=== PATIENT | male | born 1990 | race Caucasian/White ===

== ENCOUNTER 2016-09-21 11:39 | Inpatient (IN) | payer OTHER ==
[2016-09-21 12:56] VITALS: BMI 21.7
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
[2016-09-21] MEDS ORDERED: MENTHOL/PHENOL 1 EACH UD MM PRN (15:37)
[2016-09-21] MEDS ORDERED: P-EPHED 60MG/TRIPROLIDI 2.5MG TABLET PO PRN (15:37)
[2016-09-21] MEDS ORDERED: NICOTINE POLACRILEX 4 MG GUM BC PRN (15:37)
[2016-09-21] MEDS ORDERED: MAGNESIUM HYDROX 2400MG/30ML ORAL SUSPENSION 30 ML CUP PO PRN (15:37)
[2016-09-21] MEDS ORDERED: MAG HYDROX/AL HYDROX/SIMETH 30 ML UNIT-DOSE CUP PO PRN (15:37)
[2016-09-21] MEDS ORDERED: ACETAMINOPHEN 325 MG TABLET (FP) PO PRN (15:37)
[2016-09-21] MEDS ORDERED: IBUPROFEN 400 MG TABLET (FP) PO PRN (15:37)
[2016-09-21] MEDS ORDERED: hydrOXYzine PAMOATE 50 MG CAPSULE (FP) PO PRN (15:37)
[2016-09-21] MEDS ORDERED: MAGNESIUM CITRATE 300 ML BOTTLE PO PRN (15:37)
[2016-09-21] MEDS ORDERED: LOPERAMIDE HCL 2 MG CAPSULE PO PRN (15:37)
[2016-09-21] MEDS ORDERED: guaiFENesin/D-METHORPHAN HB 10 ML UNIT-DOSE CUPS PO PRN (15:37)
[2016-09-21] MEDS ORDERED: TRIMETHOBENZAMIDE HCL 300 MG CAPSULE PO PRN (15:40)
[2016-09-21] MEDS ORDERED: METHADONE HCL 10 MG TABLET (FOR DETOX USE ONLY) PO ONE ×2 (15:56→23:00)
[2016-09-21] MEDS: diazePAM 5 MG TABLET PO PRN ×2 (17:30→22:33)
[2016-09-21] MEDS: THIAMINE HCL 100 MG TABLET (FP) PO SCH (22:00)
[2016-09-21] MEDS: diphenhydrAMINE HCL 50 MG CAPSULE PO PRN (22:33)
[2016-09-22] MEDS: diazePAM 5 MG TABLET PO PRN ×2 (06:14→19:47)
--- NOTE | 2016-09-22 08:04 | CONSULT ---
[facility] Psychiatric Consult - Data Date of interview: 09/22/16 Admission source: [facility] Identifying data: This is 26 years old male with history of Schizophrenia, intoxicated with: Opioids, Cocaine and Nicotine Substance Abuse History: Smoking Cessation. Smoking history: Current every day smoker. Have you smoked in the past 12 months: Yes. Aproximately how many cigarettes per day: 20. Hx Chewing Tobacco Use: No. Initiated information on smoking cessation: Yes. 'Breaking Loose' booklet given: 09/21/16. - Substance & Tx. History. Hx Alcohol Use: No. Hx Substance Use: Yes. Substance Use Type : Cocaine, Heroin. Hx Substance Use Treatment: No. - Substances Abused. Heroin. Route: Inhalation. Frequency: Daily. Amount used: 5-6 bags. Age of first use: 21. Date of Last Use: 09/20/16. Cocaine. Route: Inhalation. Frequency: Daily. Amount used: $60-70. Age of first use: 21. Date of Last Use : 09/20/16 Medical History: Denies Psychiatric History: Patient reports history of hearing voices, carries Schizophrenia, reports taking prior to admission: Zyprexa 20mg po qhs. Denies psychioatroc hospitalization history Physical/Sexual Abuse/Trauma History: Denies Additional Comment: Zyprexa 20mg po qhs Mental Status Exam - Mental Status Exam Alert and Oriented to: Person Cognitive Function: Fair Patient Appearance: Unkempt Mood: Sad Affect: Flat Patient Behavior: Sedated Speech Pattern: Delayed Voice Loudness: Mildly Soft/Quiet Thought Process: Circumstantial Thought Disorder: Being Controlled Hallucinations: Denies Suicidal Ideation: Denies Insight/Judgement: Fair Sleep: Difficulty falling asleep Appetite: Weight gain Muscle strength/Tone: Normal Gait/Station: Shuffling Additional Comments: Zyprexa 20mg po qhs Psychiatric Findings - Problem List ([place] 1, 2,3) (1) Traumatic periorbital ecchymosis Current Visit: Yes Status: Acute Qualifiers: Encounter type: initial encounter Laterality: unspecified laterality Qualified Code(s): S00.10XA - Contusion of unspecified eyelid and periocular area, initial encounter (2) Cocaine dependence Current Visit: Yes Status: Chronic Qualifiers: Substance use status: uncomplicated Qualified Code(s): F14.20 - Cocaine dependence, uncomplicated (3) Nicotine dependence Current Visit: Yes Status: Chronic Qualifiers: Nicotine product type: cigarettes Substance use status: uncomplicated Qualified Code(s): F17.210 - Nicotine dependence, cigarettes, uncomplicated (4) Opioid dependence with withdrawal Current Visit: Yes Status: Chronic (5) Paranoid schizophrenia Current Visit: Yes Status: Acute - Initial Treatment Plan Initial Treatment Plan: Zyprexa 20mg po qhs
[2016-09-22] MEDS ORDERED: METHADONE HCL 10 MG TABLET (FOR DETOX USE ONLY) PO ONE (10:00)
[2016-09-22 10:08] LABS: MCH 29.2 pg (25.7-33.7); MCHC 33.1 g/dl (32.0-35.9); MEAN CELL VOLUME 88.2 fl (80-96); MEAN PLT VOLUME 9.3 fl (7.5-11.1); PLATELET COUNT 268 K/MM3 (134-434); RDW 13.5 % (11.9-15.9); WHITE BLOOD COUNT 10.3 K/mm3 (4.0-10.0)
[2016-09-22] MEDS: PRENATAL VITAMINS W/ FOLIC ACID TABLET (FP) PO SCH (10:11)
[2016-09-22] MEDS: NICOTINE 21 MG/24 HOURS TOPICAL PATCH TD SCH (10:12)
[2016-09-22 10:38] LABS: ALK PHOS 118 U/L (45-117); ANION GAP 10 (8-16); BILIRUBIN,TOTAL 0.3 mg/dL (0.2-1.0); CO2 28 mmol/L (21-32); GLUCOSE,RANDOM 114 mg/dL (74-106); SGOT/AST 29 U/L (15-37); SGPT/ALT 42 U/L (12-78); TOT PROT 7.1 g/dl (6.4-8.2)
--- NOTE | 2016-09-22 11:06 | EKG ---
Test Reason : Blood Pressure : / mmHG Vent. Rate : 082 BPM Atrial Rate : 082 BPM P-R Int : 144 ms QRS Dur : 090 ms QT Int : 350 ms P-R-T Axes : 052 073 065 degrees QTc Int : 408 ms NORMAL SINUS RHYTHM ST ELEVATION, CONSIDER EARLY REPOLARIZATION BORDERLINE ECG NO PREVIOUS ECGS AVAILABLE Confirmed by GILMAR DIETZ MD ([id number]) on 09/22/2016 11:06:29 AM Referred By: Confirmed By:GILMAR DIETZ MD
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
[2016-09-22] MEDS: THIAMINE HCL 100 MG TABLET (FP) PO SCH (22:05)
[2016-09-22] MEDS: OLANZapine 10 MG TABLET PO SCH (22:05)
[2016-09-23] MEDS ORDERED: METHADONE HCL 5 MG TABLET (FOR DETOX USE ONLY) PO ONE (10:00)
[2016-09-23] MEDS: NICOTINE 21 MG/24 HOURS TOPICAL PATCH TD SCH (10:16)
[2016-09-23] MEDS: PRENATAL VITAMINS W/ FOLIC ACID TABLET (FP) PO SCH (10:16)
--- NOTE | 2016-09-23 11:08 | PN ---
BHS COWS - Scale Resting Pulse: 1= NE 81-100 Sweatin=Flushed/Facial Moisture Restless Observation: 0= Sits Still Pupil Size: 0= Normal to Room Light Bone or Joint Aches: 1= Mild Discomfort Runny Nose/ Eye Tearin= Nasal Congestion GI Upset > 30mins: 0= None Tremor Observation of Outstretched Hands: 2= Slight Tremor Visible Yawning Observation: 2= >3x During Session Anxiety or Irritability: 1=Feels Anxious/Irritable Goose Flesh Skin: 0=Smooth Skin COWS Score: 10 BHS Progress Note (SOAP) Subjective: sweats sleepy interrupted sleep Objective: 09/23/16 11:07 Vital Signs Temperature 98.2 F 09/23/16 09:32 Pulse Rate 84 09/23/16 09:32 Respiratory Rate 16 09/23/16 09:32 Blood Pressure 143/98 09/23/16 09:32 O2 Sat by Pulse Oximetry (%) awake/alert ambulating no acute distress Assessment: 09/23/16 11:07 withdrawals sx Plan: continue detox increase fluids
[2016-09-23] MEDS: diazePAM 5 MG TABLET PO PRN (14:12)
[2016-09-23] MEDS: THIAMINE HCL 100 MG TABLET (FP) PO SCH (22:40)
[2016-09-23] MEDS: OLANZapine 10 MG TABLET PO SCH (22:40)
[2016-09-23] MEDS: diphenhydrAMINE HCL 50 MG CAPSULE PO PRN (22:40)
[2016-09-24] MEDS ORDERED: METHADONE HCL 5 MG TABLET (FOR DETOX USE ONLY) PO ONE (10:00)
[2016-09-24] MEDS: NICOTINE 21 MG/24 HOURS TOPICAL PATCH TD SCH (10:11)
[2016-09-24] MEDS: PRENATAL VITAMINS W/ FOLIC ACID TABLET (FP) PO SCH (10:15)
--- NOTE | 2016-09-24 12:52 | PN ---
BHS Progress Note (SOAP) Subjective: ALERT,IRRITABLE,ANXIOUS,INTERRUPTED SLEEP,,PAIN IN THE BODY Objective: 09/24/16 12:52 Vital Signs Temperature 101.7 F H 09/24/16 10:19 Pulse Rate 82 09/24/16 10:19 Respiratory Rate 18 09/24/16 10:19 Blood Pressure 133/57 09/24/16 10:19 O2 Sat by Pulse Oximetry (%) Assessment: 09/24/16 12:52 WITHDRAWAL SYMPTOM Plan: CONTINUE DETOX
[2016-09-24 16:45] VITALS: BP 106/62; PULSE 97; TEMP 99
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
[2016-09-24 22:43] LABS: URINE APPEARANCE CLEAR; URINE BILIRUBIN NEGATIVE (NEGATIVE); URINE BLOOD NEGATIVE (NEGATIVE); URINE COLOR COLORLESS; URINE GLUCOSE (UA) NEGATIVE (NEGATIVE); URINE KETONE NEGATIVE (NEGATIVE); URINE LEUK ESTERASE NEGATIVE (NEGATIVE); URINE NITRITE NEGATIVE (NEGATIVE); URINE PROTEIN NEGATIVE (NEGATIVE); URINE UROBILINOGEN NEGATIVE E.U./dl (0.2-1.0)
[2016-09-25] MEDS ORDERED: METHADONE HCL 10 MG TABLET (FOR DETOX USE ONLY) PO ONE (10:00)
[2016-09-26] MEDS ORDERED: METHADONE HCL 5 MG TABLET (FOR DETOX USE ONLY) PO ONE (06:00)
== END 2016-09-24 17:30 | disposition left against medical advice (07) | DRG 770 ==
LOC: YASAS 11:39 → Y6N 14:22
PROVIDERS: ADMIT Internal Medicine Addiction Medicine; ATTEND Internal Medicine Addiction Medicine
PROC: HZ2ZZZZ Detoxification Services for Substance Abuse Treatment (ICD-10-PCS; principal; 2016-09-24)
DX: F11.23 Opioid dependence with withdrawal (principal); F14.20 Cocaine dependence, uncomplicated; F17.210 Nicotine dependence, cigarettes, uncomplicated; S00.10XA Contusion of unspecified eyelid and periocular area, initial encounter; Y04.2XXA Assault by strike against or bumped into by another person, initial encounter; Y93.89 Activity, other specified; Y92.89 Other specified places as the place of occurrence of the external cause; Y99.8 Other external cause status
CPT/HCPCS: 36415; 80053; 81003; 85027; 86593; 93005; 93010

== ENCOUNTER 2016-09-22 12:23 | Emergency (ER) | payer OTHER ==
[2016-09-22 12:33] VITALS: BP 89/62; PULSE 78; TEMP 98.3; BMI 21.7
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
--- NOTE | 2016-09-23 17:12 | EKG ---
Test Reason : Blood Pressure : / mmHG Vent. Rate : 073 BPM Atrial Rate : 073 BPM P-R Int : 162 ms QRS Dur : 092 ms QT Int : 370 ms P-R-T Axes : 061 062 056 degrees QTc Int : 407 ms NORMAL SINUS RHYTHM ST ELEVATION, CONSIDER EARLY REPOLARIZATION, PERICARDITIS, OR INJURY ABNORMAL ECG WHEN COMPARED WITH ECG OF 21-SEP-2016 16:43, NO SIGNIFICANT CHANGE WAS FOUND Confirmed by VIRI ZHANG, KAVYA ([id number]) on 09/23/2016 5:11:54 PM Referred By: Confirmed By:KAVYA MEREDITH MD
== END 2016-09-22 19:27 | disposition other institution (70) ==
LOC: JER 12:23
DX: F19.90 Other psychoactive substance use, unspecified, uncomplicated (principal); S00.10XA Contusion of unspecified eyelid and periocular area, initial encounter; Y04.2XXA Assault by strike against or bumped into by another person, initial encounter; Y93.89 Activity, other specified; Y92.9 Unspecified place or not applicable
CPT/HCPCS: 70450-TC; 93005; 93010; 99283-25

== ENCOUNTER 2016-12-01 10:47 | Inpatient (IN) | payer OTHER ==
[2016-12-01 11:34] VITALS: BMI 21.2
--- NOTE | 2016-12-01 13:34 | HP ---
COWS - Scale Resting Pulse: 0= ID 80 or Below Sweatin=Flushed/Facial Moisture Restless Observation: 1= Difficult to Sit Still Pupil Size: 0= Normal to Room Light Bone or Joint Aches: 2= Severe Diffuse Aches Runny Nose/ Eye Tearin= Runny Nose/Eyes GI Upset > 30mins: 0= None Tremor Observation: 2= Slight Tremor Visible Yawning Observation: 2= >3x During Session Anxiety or Irritability: 2=Irritable/Anxious Goose Flesh Skin: 0=Smooth Skin COWS Score: 13 Admission ROS S - HPI Chief Complaint: I am here to detox. Allergies/Adverse Reactions: Allergies Allergy/AdvReac Type Severity Reaction Status Date / Time No Known Allergies Allergy Verified 12/01/16 12:13 History of Present Illness: pt is a 26yr old male with a history of heroin and cocaine dependence seeking detox for treatment. Exam Limitations: No Limitations - Ebola screening Have you traveled outside of the country in the last 21 days: No Have you had contact with anyone from an Ebola affected area: No Have you been sick,other than usual withdrawal symptoms: No Do you have a fever: No - Review of Systems Constitutional: Chills, Changes in sleep, Unexplained wgt Loss EENT: reports: No Symptoms Reported Respiratory: reports: No Symptoms reported Cardiac: reports: No Symptoms Reported GI: reports: Poor Appetite, Poor Fluid Intake : reports: No Symptoms Reported Musculoskeletal: reports: No Symptoms Reported Integumentary: reports: Flushing, Sweating Neuro: reports: Headache, Tingling, Tremors Endocrine: reports: Excessive Sweating, Flushing, Intolerance to Cold, Intolerance to Heat Hematology: reports: No Symptoms Reported Psychiatric: reports: Judgement Intact, Orientated x3, Agitated, Anxious Other Systems: Reviewed and Negative Patient History - Patient Medical History Hx Anemia: No Hx Asthma: No Hx Chronic Obstructive Pulmonary Disease (COPD): No Hx Cancer: No Hx Cardiac Disorders: No Hx Congestive Heart Failure: No Hx Hypertension: No Hx Hypercholesterolemia: No Hx Pacemaker: No HX Cerebrovascular Accident: No Hx Seizures: No Hx Dementia: No Hx Diabetes: No Hx Gastrointestinal Disorders: No Hx Liver Disease: No Hx Genitourinary Disorders: No Hx Sexually Transmitted Disorders: No Hx Renal Disease (ESRD): No Hx Thyroid Disease: No Hx Human Immunodeficiency Virus (HIV): No (negative) Hx Hepatitis C: No (negative) Hx Depression: No Hx Suicide Attempt: No (denies) Hx Bipolar Disorder: No Hx Schizophrenia: Yes - Patient Surgical History Past Surgical History: No Hx Neurologic Surgery: No Hx Cataract Extraction: No Hx Cardiac Surgery: No Hx Lung Surgery: No Hx Breast Surgery: No Hx Breast Biopsy: No Hx Abdominal Surgery: No Hx Appendectomy: No Hx Cholecystectomy: No Hx Genitourinary Surgery: No Hx Section: No Hx Orthopedic Surgery: No Anesthesia Reaction: No - PPD History Previous Implant?: Yes Documented Results: Negative w/o proof Date: 09/23/16 PPD to be Administered?: No - Reproductive History Patient is a Female of Child Bearing Age (11 -55 yrs old): No - Smoking Cessation Smoking history: Current every day smoker Have you smoked in the past 12 months: Yes Aproximately how many cigarettes per day: 20 Hx Chewing Tobacco Use: No Initiated information on smoking cessation: Yes 'Breaking Loose' booklet given: 12/01/16 - Substance & Tx. History Hx Alcohol Use: No Hx Substance Use: Yes Substance Use Type: Cocaine, Heroin Hx Substance Use Treatment: Yes - Substances Abused Heroin Route: Inhalation Frequency: Daily Amount used: 10 bags Age of first use: 21 Date of Last Use: 12/01/16 Cocaine Route: Inhalation Frequency: Daily Amount used: $50 Age of first use: 21 Date of Last Use: 11/30/16 Family Disease History - Family Disease History Family History: Denies Admission Physical Exam BHS - Vital Signs Vital Signs: Vital Signs - 24 hr 12/01/16 11:32 Temperature 98.1 F Pulse Rate 74 Respiratory 18 Rate Blood Pressure 123/70 - Physical General Appearance: Yes: Appropriately Dressed, Moderate Distress, Tremorous, Irritable, Sweating, Anxious HEENTM: Yes: Hearing grossly Normal, Normal Voice Respiratory: Yes: Lungs Clear, Normal Breath Sounds, No Respiratory Distress Neck: Yes: Within Normal Limits Breast: Yes: Within Normal Limits Cardiology: Yes: Regular Rhythm, Regular Rate, S1, S2 Abdominal: Yes: Normal Bowel Sounds, Non Tender, Soft Genitourinary: Yes: Within Normal Limits Back: Yes: Normal Inspection Musculoskeletal: Yes: full range of Motion Extremities: Yes: Normal Inspection, Tremors Neurological: Yes: Fully Oriented, Alert, Normal Response Integumentary: Yes: Normal Color, Diaphoresis Lymphatic: Yes: Within Normal Limits - Diagnostic (1) Cocaine dependence Current Visit: Yes Status: Chronic Qualifiers: Substance use status: uncomplicated Qualified Code(s): F14.20 - Cocaine dependence, uncomplicated (2) Nicotine dependence Current Visit: Yes Status: Chronic Qualifiers: Nicotine product type: cigarettes Substance use status: uncomplicated Qualified Code(s): F17.210 - Nicotine dependence, cigarettes, uncomplicated (3) Opioid dependence with withdrawal Current Visit: Yes Status: Chronic Cleared for Admission [facility] - Detox or Rehab [facility] Level of Care: Medically Managed Detox Regimen/Protocol: Methadone [facility] Breath Alcohol Content Breath Alcohol Content: 0 Urine Drug Screen - Results Drug Screen Negative: No Urine Drug Screen Results: CONRAD-Cocaine, OPI-Opiates
[2016-12-01] MEDS ORDERED: IBUPROFEN 400 MG TABLET (FP) PO PRN (13:39)
[2016-12-01] MEDS ORDERED: MAGNESIUM HYDROX 2400MG/30ML ORAL SUSPENSION 30 ML CUP PO PRN (13:39)
[2016-12-01] MEDS ORDERED: MAGNESIUM CITRATE 300 ML BOTTLE PO PRN (13:39)
[2016-12-01] MEDS ORDERED: MAG HYDROX/AL HYDROX/SIMETH 30 ML UNIT-DOSE CUP PO PRN (13:39)
[2016-12-01] MEDS ORDERED: guaiFENesin/D-METHORPHAN HB 10 ML UNIT-DOSE CUPS PO PRN (13:39)
[2016-12-01] MEDS ORDERED: P-EPHED 60MG/TRIPROLIDI 2.5MG TABLET PO PRN (13:39)
[2016-12-01] MEDS ORDERED: LOPERAMIDE HCL 2 MG CAPSULE PO PRN (13:39)
[2016-12-01] MEDS ORDERED: hydrOXYzine PAMOATE 50 MG CAPSULE (FP) PO PRN (13:39)
[2016-12-01] MEDS ORDERED: MENTHOL/PHENOL 1 EACH UD MM PRN (13:39)
[2016-12-01] MEDS ORDERED: ACETAMINOPHEN 325 MG TABLET (FP) PO PRN (13:39)
[2016-12-01] MEDS: diazePAM 5 MG TABLET PO PRN (14:10)
[2016-12-01] MEDS ORDERED: METHADONE HCL 10 MG TABLET (FOR DETOX USE ONLY) PO ONE ×2 (14:15→23:00)
[2016-12-01 19:47] LABS: URINE APPEARANCE CLEAR; URINE BILIRUBIN NEGATIVE (NEGATIVE); URINE BLOOD NEGATIVE (NEGATIVE); URINE COLOR COLORLESS; URINE GLUCOSE (UA) NEGATIVE (NEGATIVE); URINE KETONE NEGATIVE (NEGATIVE); URINE LEUK ESTERASE NEGATIVE (NEGATIVE); URINE NITRITE NEGATIVE (NEGATIVE); URINE PROTEIN NEGATIVE (NEGATIVE); URINE UROBILINOGEN NEGATIVE E.U./dl (0.2-1.0)
[2016-12-01] MEDS: THIAMINE HCL 100 MG TABLET (FP) PO SCH (22:38)
[2016-12-01] MEDS: diphenhydrAMINE HCL 50 MG CAPSULE PO PRN (22:39)
[2016-12-02] MEDS: diazePAM 5 MG TABLET PO PRN (05:52)
[2016-12-02 10:00] LABS: MEAN PLT VOLUME 9.2 fl (7.5-11.1); PLATELET COUNT 256 K/MM3 (134-434); RDW 13.4 % (11.9-15.9); WHITE BLOOD COUNT 7.5 K/mm3 (4.0-10.0)
[2016-12-02] MEDS ORDERED: METHADONE HCL 10 MG TABLET (FOR DETOX USE ONLY) PO ONE (10:00)
--- NOTE | 2016-12-02 10:05 | CONSULT ---
[facility] Psychiatric Consult - Data Date of interview: 12/02/16 Admission source: [facility] Identifying data: This is 26 years old male with [id number] of Schizophrenia, intoxicated with: Opioids, Cocaine and Nicotine Substance Abuse History: - Smoking Cessation. Smoking history: Current every day smoker. Have you smoked in the past 12 months: Yes. Aproximately how many cigarettes per day: 20. Hx Chewing Tobacco Use: No. Initiated information on smoking cessation: Yes. 'Breaking Loose' booklet given: 12/01/16. - Substance & Tx. History. Hx Alcohol Use: No. Hx Substance Use: Yes. Substance Use Type : Cocaine, Heroin. Hx Substance Use Treatment: Yes. - Substances Abused. Heroin. Route: Inhalation. Frequency: Daily. Amount used: 10 bags. Age of first use: 21. Date of Last Use: 12/01/16. Cocaine. Route: Inhalation. Frequency: Daily. Amount used: $50. Age of first use: 21. Date of Last Use: 11/30/16 Medical History: Denies Psychiatric History: Patient reprotwes n o psychiatric hospitalization history, reports to carry Scizophrenia, reports stable on: Zyprexa 20mg pom qhs Physical/Sexual Abuse/Trauma History: Denies Additional Comment: Zyprexa 20mg pom qhs Mental Status Exam - Mental Status Exam Alert and Oriented to: Person Cognitive Function: Fair Patient Appearance: Unkempt Mood: Sad Affect: Flat Patient Behavior: Sedated, Cooperative Speech Pattern: Delayed Voice Loudness: Mildly Soft/Quiet Thought Process: Goal Oriented Thought Disorder: Being Controlled Hallucinations: Denies Suicidal Ideation: Denies Homicidal Ideation: Denies Insight/Judgement: Fair Sleep: Difficulty falling asleep Appetite: Fair Muscle strength/Tone: Mild Hypotonicity Gait/Station: Shuffling Additional Comments: Zyprexa 20mg pom qhs Psychiatric Findings - Problem List ([place] 1, 2,3) (1) Cocaine dependence Current Visit: Yes Status: Chronic Qualifiers: Substance use status: uncomplicated Qualified Code(s): F14.20 - Cocaine dependence, uncomplicated (2) Nicotine dependence Current Visit: Yes Status: Chronic Qualifiers: Nicotine product type: cigarettes Substance use status: uncomplicated Qualified Code(s): F17.210 - Nicotine dependence, cigarettes, uncomplicated (3) Opioid dependence with withdrawal Current Visit: Yes Status: Chronic (4) Paranoid schizophrenia Current Visit: No Status: Acute (5) Drug-induced mood disorder Current Visit: Yes Status: Acute - Initial Treatment Plan Initial Treatment Plan: Zyprexa 20mg pom qhs
[2016-12-02] MEDS: PRENATAL VITAMINS W/ FOLIC ACID TABLET (FP) PO SCH (10:28)
[2016-12-02] MEDS: NICOTINE 21 MG/24 HOURS TOPICAL PATCH TD SCH (10:28)
[2016-12-02 10:32] LABS: ALBUMIN 4.1 g/dl (3.4-5.0); ALK PHOS 114 U/L (45-117); ANION GAP 10 (8-16); BILIRUBIN,TOTAL 0.4 mg/dL (0.2-1.0); CALCIUM 9.5 mg/dL (8.5-10.1); CO2 27 mmol/L (21-32); COCKROFT - GAULT 108.52; CREATININE 0.9 mg/dL (0.7-1.3); GLUCOSE,RANDOM 117 mg/dL (74-106); SGOT/AST 25 U/L (15-37); SGPT/ALT 29 U/L (12-78); TOT PROT 7.1 g/dl (6.4-8.2)
--- NOTE | 2016-12-02 10:48 | PN ---
S COWS - Scale Resting Pulse: 1= [place] 81-100 Sweatin= Chills/Flushing Restless Observation: 3= Extraneous Movement Pupil Size: 2= Moderately Dilated Bone or Joint Aches: 4=Acute Joint/Muscle Pain Runny Nose/ Eye Tearin= Nasal Congestion GI Upset > 30mins: 1= Stomach Cramp Tremor Observation of Outstretched Hands: 1= Tremor [place], Not Seen Yawning Observation: 1= 1-2x During Session Anxiety or Irritability: 2=Irritable/Anxious Goose Flesh Skin: 0=Smooth Skin COWS Score: 17 S Progress Note (SOAP) Subjective: ANXIETY,CHILLS,FATIGUE. Objective: 12/02/16 10:47 Vital Signs Temperature 98.6 F 12/02/16 09:29 Pulse Rate 85 12/02/16 09:29 Respiratory Rate 18 12/02/16 09:29 Blood Pressure 115/68 12/02/16 09:29 O2 Sat by Pulse Oximetry (%) Laboratory Last Values WBC 7.5 K/mm3 (4.0-10.0) 12/02/16 06:00 RBC 4.68 M/mm3 (4.00-5.60) 12/02/16 06:00 Hgb 13.6 GM/dL (11.7-16.9) 12/02/16 06:00 Hct 41.1 % (35.4-49) 12/02/16 06:00 MCV 88.0 fl (80-96) 12/02/16 06:00 MCHC 33.0 g/dl (32.0-35.9) 12/02/16 06:00 RDW 13.4 % (11.9-15.9) 12/02/16 06:00 Plt Count 256 K/MM3 (134-434) 12/02/16 06:00 MPV 9.2 fl (7.5-11.1) 12/02/16 06:00 Urine Color Colorless 12/01/16 14:00 Urine Appearance Clear 12/01/16 14:00 Urine pH 7.0 (5.0-8.0) 12/01/16 14:00 Ur Specific [place] 1.010 (1.005-1.025) 12/01/16 14:00 Urine Protein Negative (NEGATIVE) 12/01/16 14:00 Urine Glucose (UA) Negative (NEGATIVE) 12/01/16 14:00 Urine Ketones Negative (NEGATIVE) 12/01/16 14:00 Urine Blood Negative (NEGATIVE) 12/01/16 14:00 Urine Nitrite Negative (NEGATIVE) 12/01/16 14:00 Urine Bilirubin Negative (NEGATIVE) 12/01/16 14:00 Urine Urobilinogen Negative E.U./dl (0.2-1.0) 12/01/16 14:00 Ur Leukocyte Esterase Negative (NEGATIVE) 12/01/16 14:00 Assessment: 12/02/16 10:47 WITHDRAWAL SX Plan: CONTINUE DETOX
[2016-12-02 12:17] LABS: HIV 1 & 2 AB NEGATIVE; HIV 1 AGp24 NEGATIVE
--- NOTE | 2016-12-02 16:38 | EKG ---
Test Reason : Blood Pressure : / mmHG Vent. Rate : 079 BPM Atrial Rate : 079 BPM P-R Int : 152 ms QRS Dur : 088 ms QT Int : 370 ms P-R-T Axes : 064 072 063 degrees QTc Int : 424 ms NORMAL SINUS RHYTHM NORMAL ECG WHEN COMPARED WITH ECG OF 22-SEP-2016 15:41, NO SIGNIFICANT CHANGE WAS FOUND Confirmed by KAVYA MEREDITH MD ([id number]) on 12/02/2016 4:37:32 PM Referred By: Confirmed By:KAVYA MEREDITH MD
[2016-12-02] MEDS ORDERED: OLANZapine 10 MG TABLET PO SCH (22:00)
[2016-12-02] MEDS: THIAMINE HCL 100 MG TABLET (FP) PO SCH (23:15)
[2016-12-02] MEDS: diphenhydrAMINE HCL 50 MG CAPSULE PO PRN (23:39)
[2016-12-03] MEDS ORDERED: METHADONE HCL 5 MG TABLET (FOR DETOX USE ONLY) PO ONE (10:00)
[2016-12-03] MEDS: NICOTINE 21 MG/24 HOURS TOPICAL PATCH TD SCH (10:27)
[2016-12-03] MEDS: PRENATAL VITAMINS W/ FOLIC ACID TABLET (FP) PO SCH (10:27)
--- NOTE | 2016-12-03 11:36 | PN ---
S COWS - Scale Resting Pulse: 1= [place] 81-100 Sweatin= Chills/Flushing Restless Observation: 3= Extraneous Movement Pupil Size: 2= Moderately Dilated Bone or Joint Aches: 4=Acute Joint/Muscle Pain Runny Nose/ Eye Tearin= Nasal Congestion GI Upset > 30mins: 1= Stomach Cramp Tremor Observation of Outstretched Hands: 2= Slight Tremor Visible Yawning Observation: 1= 1-2x During Session Anxiety or Irritability: 2=Irritable/Anxious Goose Flesh Skin: 0=Smooth Skin COWS Score: 18 BHS Progress Note (SOAP) Subjective: ANXIETY,CHILLS,FATIGUE, INTERMITTENT SLEEP. Objective: 12/03/16 11:35 Vital Signs Temperature 97.0 F L 12/03/16 10:55 Pulse Rate 86 12/03/16 10:55 Respiratory Rate 18 12/03/16 10:55 Blood Pressure 111/72 12/03/16 10:55 O2 Sat by Pulse Oximetry (%) Laboratory Last Values WBC 7.5 K/mm3 (4.0-10.0) 12/02/16 06:00 RBC 4.68 M/mm3 (4.00-5.60) 12/02/16 06:00 Hgb 13.6 GM/dL (11.7-16.9) 12/02/16 06:00 Hct 41.1 % (35.4-49) 12/02/16 06:00 MCV 88.0 fl (80-96) 12/02/16 06:00 MCHC 33.0 g/dl (32.0-35.9) 12/02/16 06:00 RDW 13.4 % (11.9-15.9) 12/02/16 06:00 Plt Count 256 K/MM3 (134-434) 12/02/16 06:00 MPV 9.2 fl (7.5-11.1) 12/02/16 06:00 Sodium 138 mmol/L (136-145) 12/02/16 06:00 Potassium 4.0 mmol/L (3.5-5.1) 12/02/16 06:00 Chloride 101 mmol/L (98-107) 12/02/16 06:00 Carbon Dioxide 27 mmol/L (21-32) 12/02/16 06:00 Anion Gap 10 (8-16) 12/02/16 06:00 BUN 12 mg/dL (7-18) D 12/02/16 06:00 Creatinine 0.9 mg/dL (0.7-1.3) 12/02/16 06:00 Creat Clearance w eGFR > 60 (>60) 12/02/16 06:00 Random Glucose 117 mg/dL (74-106) H 12/02/16 06:00 Calcium 9.5 mg/dL (8.5-10.1) 12/02/16 06:00 Total Bilirubin 0.4 mg/dL (0.2-1.0) D 12/02/16 06:00 AST 25 U/L (15-37) 12/02/16 06:00 ALT 29 U/L (12-78) D 12/02/16 06:00 Alkaline Phosphatase 114 U/L (45-117) 12/02/16 06:00 Total Protein 7.1 g/dl (6.4-8.2) 12/02/16 06:00 Albumin 4.1 g/dl (3.4-5.0) 12/02/16 06:00 Urine Color Colorless 12/01/16 14:00 Urine Appearance Clear 12/01/16 14:00 Urine pH 7.0 (5.0-8.0) 12/01/16 14:00 Ur Specific [place] 1.010 (1.005-1.025) 12/01/16 14:00 Urine Protein Negative (NEGATIVE) 12/01/16 14:00 Urine Glucose (UA) Negative (NEGATIVE) 12/01/16 14:00 Urine Ketones Negative (NEGATIVE) 12/01/16 14:00 Urine Blood Negative (NEGATIVE) 12/01/16 14:00 Urine Nitrite Negative (NEGATIVE) 12/01/16 14:00 Urine Bilirubin Negative (NEGATIVE) 12/01/16 14:00 Urine Urobilinogen Negative E.U./dl (0.2-1.0) 12/01/16 14:00 Ur Leukocyte Esterase Negative (NEGATIVE) 12/01/16 14:00 RPR Titer Nonreactive (NONREACTIVE) 12/02/16 06:00 HIV 1&2 Antibody Screen Negative 12/01/16 14:00 HIV P24 Antigen Negative 12/01/16 14:00 Assessment: 12/03/16 11:35 WITHDRAWAL SX Plan: CONTINUE DETOX
[2016-12-03 17:56] VITALS: BP 108/70; PULSE 99; TEMP 98
--- NOTE | 2016-12-03 20:30 | DS ---
[facility] Detox Discharge Summary Admission Date: 12/01/16 Discharge Date: 12/03/16 - History Present History: Cocaine Dependence, Opioid Dependence Additional Comments: PATIENT INSISTS TO LEAVE THE UNIT Pertinent Past History: SCHIZOPHRENIA NICOTINE - Physical Exam Results Vital Signs: Vital Signs Temperature 98.0 F 12/03/16 17:56 Pulse Rate 99 H 12/03/16 17:56 Respiratory Rate 16 12/03/16 17:56 Blood Pressure 108/70 12/03/16 17:56 O2 Sat by Pulse Oximetry (%) Pertinent Admission Physical Exam Findings: WITHDRAWAL SX - Treatment Hospital Course: Detox Protocol Followed, Responded well - Medication Discharge Medications: Ambulatory Orders Olanzapine [Zyprexa -] 20 mg PO HS #30 tablet 09/22/16 Olanzapine [Zyprexa -] 20 mg PO HS #30 tablet 12/02/16 - Diagnosis (1) Opioid dependence with withdrawal Status: Chronic (2) Cocaine dependence, uncomplicated Status: Chronic (3) Paranoid schizophrenia Status: Suspected - AMA Did Patient Leave Against Medical Advice: Yes
[2016-12-04] MEDS ORDERED: METHADONE HCL 5 MG TABLET (FOR DETOX USE ONLY) PO ONE (10:00)
[2016-12-05] MEDS ORDERED: METHADONE HCL 10 MG TABLET (FOR DETOX USE ONLY) PO ONE (10:00)
[2016-12-06] MEDS ORDERED: METHADONE HCL 5 MG TABLET (FOR DETOX USE ONLY) PO ONE (06:00)
== END 2016-12-03 17:11 | disposition left against medical advice (07) | DRG 770 ==
LOC: YASAS 10:47 → Y3N 12:52
PROVIDERS: ADMIT Internal Medicine; ATTEND Internal Medicine
PROC: HZ2ZZZZ Detoxification Services for Substance Abuse Treatment (ICD-10-PCS; principal; 2016-12-03)
DX: F11.23 Opioid dependence with withdrawal (principal); F14.20 Cocaine dependence, uncomplicated; F17.210 Nicotine dependence, cigarettes, uncomplicated; F25.9 Schizoaffective disorder, unspecified; F19.24 Other psychoactive substance dependence with psychoactive substance-induced mood disorder
CPT/HCPCS: 36415; 80053; 81003; 85027; 86593; 87389; 93005; 93010